=== PATIENT | female | born 1975 | race Two or more races ===

== ENCOUNTER 2023-03-04 05:30 | Day surgery (SDC) | payer OTHER ==
[~2023-03-04] VITALS: Ht 154.9 cm; Wt 72.6 kg
== END 2023-03-04 17:35 | disposition home or self-care (01) ==
LOC: CIR.AMB 05:30
PROVIDERS: ATTEND Obstetrics & Gynecology
DX: N84.0 Polyp of corpus uteri (principal); N95.0 Postmenopausal bleeding; I10 Essential (primary) hypertension; E78.00 Pure hypercholesterolemia, unspecified; Z20.822 Contact with and (suspected) exposure to COVID-19